=== PATIENT | male | born 1990 | race Hispanic/Latino ===

== ENCOUNTER 2019-08-03 14:15 | Emergency (ER) | payer OTHER ==
[2019-08-04 16:09] LABS: SARS-CoV-2 MS2 Positive; SARS-CoV-2 N Gene Negative; SARS-CoV-2 S Gene Negative; SARS-CoV-2 orf1ab Negative
== END 2019-08-03 15:00 | disposition home or self-care (01) ==
LOC: ERS 14:15
DX: Z20.828 Contact with and (suspected) exposure to other viral communicable diseases (principal)
CPT/HCPCS: 87635; 99283; U0003

== ENCOUNTER 2021-06-09 21:41 | Emergency (ER) | payer OTHER ==
[2021-06-09] MEDS ORDERED: diphenhydrAMINE 50 MG CAP ONE (23:01)
[2021-06-09] MEDS ORDERED: predniSONE 20 MG TAB ONE (23:01)
[2021-06-09] MEDS ORDERED: Famotidine 20 MG TAB ONE (23:01)
== END 2021-06-09 23:42 | disposition home or self-care (01) ==
LOC: ERS 21:41
DX: L50.9 Urticaria, unspecified (principal)
CPT/HCPCS: 99282; J7512